=== PATIENT | female | born 1960 | race African-American/Black ===

== ENCOUNTER 2019-04-09 10:52 | Inpatient (IN) | payer SELFPAY ==
[~2019-04-09] VITALS: Ht 170.2 cm; Wt 68.0 kg
[~2019-04-09 10:52] MED LIST: ASPI-1158 PO
[2019-04-09] MEDS ORDERED: BACITRACIN ZINC OINT UDPKT TOP ONE (12:00)
[2019-04-09 12:49] LABS: BASOPHILS % 0.3 % (0.0-2.0); EOSINOPHILS % 0.2 % (0.0-5.0); HEMATOCRIT. 35.2 % (36.0-48.0); HEMOGLOBIN. 11.5 g/dL (12.0-16.0); MEAN CORPUSCULAR HEMOGLOBIN 26.1 pg (28.0-32.0); MEAN CORPUSCULAR VOLUME 80.3 fL (81.0-99.0); MEAN PLATELET VOLUME 9.5 fl (7.4-10.4); MONOCYTES % 7.5 % (2.0-8.0); PLATELET 188 x1000/uL (130-400); RED BLOOD CELL COUNT 4.39 mill/uL (4.2-5.4); RED CELL DISTRIBUTION WIDTH 15.1 % (11.6-14.6)
[2019-04-09 12:54] LABS: CHLORIDE 108 mEq/L (98-107)
[2019-04-09 14:02] LABS: PARTIAL THROMBOPLASTIN TIME 22.3 sec (23.4-31.0); PROTHROMBIN TIME 10.4 sec (9.6-11.0)
[2019-04-09] MEDS ORDERED: IOHEXOL-350 100 ML BOTTLE ONE (16:33)
[2019-04-09] MEDS ORDERED: ONDANSETRON HCL 4MG/2ML INJ IV PRN (17:30)
[2019-04-09] MEDS ORDERED: CLONIDINE 0.1MG TABLET PO PRN (17:30)
[2019-04-09] MEDS ORDERED: GUAIFENESIN 200MG/10ML SUGAR FREE UDC PO PRN (17:30)
[2019-04-09] MEDS ORDERED: HYDROCODONE/ACETAMINOPHEN 5/325MG TABLET PO PRN (17:30)
[2019-04-09] MEDS ORDERED: DOCUSATE SODIUM 100MG CAPSULE PO PRN (17:30)
[2019-04-09] MEDS ORDERED: ACETAMINOPHEN 325MG TABLET PO PRN (17:30)
[2019-04-09] MEDS ORDERED: MAGNESIUM/ALUMINUM HYDROXIDE/SIMETHICONE 30ML UDC PO PRN (17:30)
[2019-04-09] MEDS ORDERED: MORPHINE SULFATE 2 MG/ML CPJ (NOT FOR IM USE) IV PRN (17:37)
[2019-04-09 22:25] VITALS: BP 142/80
[2019-04-09] MEDS ORDERED: ATOR20TA65 PO (23:31)
[2019-04-09 23:59] LABS: CREATINE KINASE 560 IU/L (26-192)
[2019-04-10] VITALS: BP 112/59
[2019-04-10 04:00] VITALS: BP 128/74
[2019-04-10 06:31] LABS: CHLORIDE 107 mEq/L (98-107)
[2019-04-10 06:38] LABS: BASOPHILS % 0.5 % (0.0-2.0); EOSINOPHILS % 1.4 % (0.0-5.0); HEMATOCRIT. 33.7 % (36.0-48.0); HEMOGLOBIN. 10.9 g/dL (12.0-16.0); MEAN CORPUSCULAR HEMOGLOBIN 25.8 pg (28.0-32.0); MEAN PLATELET VOLUME 9.9 fl (7.4-10.4); NEUTROPHILS % 65.1 % (40.0-76.0); PLATELET 156 x1000/uL (130-400); RED BLOOD CELL COUNT 4.22 mill/uL (4.2-5.4); RED CELL DISTRIBUTION WIDTH 14.9 % (11.6-14.6)
[2019-04-10 06:55] LABS: CREATINE KINASE 510 IU/L (26-192); HDL CHOLESTEROL 67 mg/dL (40-59); LDL CHOLESTEROL 47 mg/dL (5-100)
[2019-04-10 08:00] VITALS: BP 128/72
[2019-04-10] MEDS ORDERED: ENOXAPARIN 30MG/0.3ML SYR SUBCUT SCH (09:00)
[2019-04-10] MEDS ORDERED: AMLODIPINE 10MG TABLET PO SCH (09:00)
[2019-04-10] MEDS ORDERED: ASPIRIN 81MG EC TABLET PO SCH (09:00)
[2019-04-10] MEDS ORDERED: CEPH-569 MT (09:08)
[2019-04-10] MEDS ORDERED: MINO90TA9 MT (09:08)
[2019-04-10 10:30] VITALS: BP 128/72
== END 2019-04-10 10:55 | disposition home or self-care (01) | DRG 198 ==
LOC: ER 11:08 → 6WST 15:02 → ENRESERV 20:57
PROVIDERS: ADMIT Hospitalist; ATTEND Hospitalist
DX: R07.89 Other chest pain (principal); I25.10 Atherosclerotic heart disease of native coronary artery without angina pectoris; E78.00 Pure hypercholesterolemia, unspecified; I10 Essential (primary) hypertension; Z86.73 Personal history of transient ischemic attack (TIA), and cerebral infarction without residual deficits; Z98.82 Breast implant status; Z79.899 Other long term (current) drug therapy
CPT/HCPCS: 36415; 71045; 71275; 80048; 80061; 82550; 83880; 84484; 93005; 93306; 93970; 99285; J1650; J2270; J2405; Q9967